=== PATIENT | female | born 1975 | race Hispanic/Latino ===

== ENCOUNTER 2017-11-18 03:30 | Inpatient (IN) | payer OTHER ==
[~2017-11-18] VITALS: Ht 154.9 cm; Wt 89.4 kg
[~2017-11-18 03:30] MED LIST: ADVAIR DISKUS 21 DSK INH; CIPRO500 M1 PO; FLUTICASON0.05 MG/A2; IBUPROFEN600 MG PO; IBUPROFEN800 M1 PO; MONTELUKAST SOD10 MG PO; NAPROXEN250 MG; PATADAY 2.5 ML2.5 ML OPH; PROAIR HFA0.09 MG/Ac INH; REGLAN10 M1 PO; TRILIPIX 135 M135 MG PO
--- NOTE | 2017-11-18 03:39 | ED GENERAL ADULT ---
History of Present Illness General Chief Complaint: Allergy Symptoms Stated Complaint: PT DISCHARGED TH C/O ? MED REACTION Source: patient Exam Limitations: no limitations Vital Signs & Intake/Output Vital Signs & Intake/Output Vital Signs Date Time Temp Pulse Resp B/P B/P Pulse O2 O2 Flow FiO2 Mean Ox Delivery Rate 11/18 0504 100.4 11/18 0504 100.4 11/18 0436 103.2 11/18 0346 103.2 106 20 138/88 96 Room Air Allergies Coded Allergies: ampicillin (Intermediate, RASH 11/17/17) Reconcile Medications Albuterol Sulfate (Proair Hfa) 0.09 MG/Actuation DEEDEE 2 PUFF INH PRN ASTHMA ( Reported) Ciprofloxacin HCl (Cipro) 500 MG TABLET 1 TAB PO BID PYELO Fenofibric Acid (Trilipix 135 MG CAP) 135 MG CAPSULE.DR 1 CAP PO DAILY CHOLESTEROL (Reported) Fluticasone Propionate (Unknown Strength) SPRAY.SUSP (Unknown Dose) UNKNOWN ( Reported) FLUTICASONE/SALMETEROL (Advair 250-50 Diskus) 250 MCG-50 MCG/DOSE BLST.W.DEV 1 PUFF INH DAILY PRN ASTHMA (Reported) Ibuprofen 800 MG TABLET 1 TAB PO TID PRN PAIN Ibuprofen 600 MG TABLET 1 TAB PO TID PRN ABDOMINAL CRAMPING Metoclopramide HCl (Reglan) 10 MG TABLET 1 TAB PO 4 TIMES/DAY PRN NAUSEA 30 minutes before meals and bedtime Montelukast Sodium 10 MG TABLET 1 TAB PO DAILY ASTHMA (Reported) Naproxen (Unknown Strength) TABLET (Unknown Dose) UNKNOWN (Reported) OLOPATADINE HCL (Pataday 2.5 Ml) (Unknown Strength) DROPS (Unknown Dose) OPH UNKNOWN (Reported) Triage Nurses Notes Reviewed? yes Onset: Gradual Duration: hour(s): Timing: recent history Injury Environment: home Severity: mild, moderate Modifying Factors: Improves With: rest. Associated Symptoms: vomiting, right cva tenderness HPI: 42 yo woman discharged 6 hours ago with pyelo returns to the ED with 4 episodes of vomiting, right flank pain, and fever/ chills. She shares that soon after arriving, she began vomiting, and has had difficulty holding down fluids. She notes right flank pain. No dyspnea, cough, phlegm. She is otherwise well. Past History Travel History Traveled to [place] past 21 day No Medical History Any Pertinent Medical History? see below for history Neurological: migraine EENT: NONE Cardiovascular: hyperlipidemia Respiratory: asthma Gastrointestinal: GERD Hepatic: ENLARGED LIVER Renal: NONE Musculoskeletal: NONE Psychiatric: NONE Endocrine: NONE Blood Disorders: NONE Cancer(s): NONE, adrenal cancer CAMP ASSISTANT/Reproductive: NONE Surgical History Surgical History: TUBAL LIGATION. Psychosocial History What is your primary language Lithuanian Family History Hx Contributory? No Review of Systems Review of Systems Constitutional: Reports: no symptoms. EENTM: Reports: no symptoms. Respiratory: Reports: no symptoms. Cardiovascular: Reports: no symptoms. GI: Reports: no symptoms. Genitourinary: Reports: no symptoms. Musculoskeletal: Reports: no symptoms. Skin: Reports: no symptoms. Neurological/Psychological: Reports: no symptoms. Hematologic/Endocrine: Reports: no symptoms. Immunologic/Allergic: Reports: no symptoms. All Other Systems: Reviewed and Negative Physical Exam Physical Exam General Appearance: well developed/nourished, mild distress, moderate distress Head: atraumatic, normal appearance Eyes: Bilateral: normal appearance. Ears, Nose, Throat: dry mucosa Neck: normal inspection, supple, full range of motion Respiratory: normal breath sounds, chest non-tender, no respiratory distress, quiet respiration, lungs clear Cardiovascular: regular rate/rhythm Gastrointestinal: normal bowel sounds, soft, non-tender, no organomegaly Back: CVA tenderness (R) Extremities: normal inspection, normal capillary refill, normal range of motion, no edema Neurologic/Psych: no motor/sensory deficits, awake, alert, oriented x 3 Skin: intact, normal color, warm/dry Core Measures ACS in differential dx? No CVA/TIA Diagnosis: No Sepsis Present: No Sepsis Focused Exam Completed? No ED Sepsis Exam Date of Focused Sepsis Exam: 11/18/17 Time of Focused Sepsis Exam: 423 Sepsis Cardiac Exam: Tachycardia Sepsis Resp Exam: CTA Sepsis Cap Refill Exam: <2 Sec Sepsis Peripheral Pulse Exam: Normal Sepsis Peripheral Pulse Location: Dorsalis Pedis Sepsis Skin Color Exam: Normal for Ethnicity Skin Temp/Moisture Exam: Warm/Dry Progress Differential Diagnoses I considered the following diagnoses in my evaluation of the patient: pyelo, sepsis, vs other... extensive workup completed a few hours ago... Plan of Care: Orders Procedure Date/time Status Clear Liquid Diet 11/18 B Active Saline Lock 11/18 526 Active Misc Message 11/18 526 Active ED Holding Orders 11/18 526 Active Admit to inpatient 11/18 526 Active Vital Signs 11/18 526 Active Code Status 11/18 526 Active BLOOD CULTURE 11/19 419 Active CULTURE,URINE 11/18 414 Active BLOOD CULTURE 11/18 414 Active URINALYSIS 11/18 414 Complete TROPONIN LEVEL 11/18 413 Complete LIPASE 11/18 413 Complete LACTIC ACID 11/18 413 Complete HEPATIC FUNCTION PANEL 11/18 413 Complete D-DIMER 11/18 413 Complete CBC WITHOUT DIFFERENTIAL 11/18 413 Complete BASIC METABOLIC PANEL 11/18 413 Complete AMYLASE 11/18 413 Complete EKG 11/18 413 Active Laboratory Tests 11/18/17435: Urine Color YEL, Urine Clarity HAZY H, Urine pH 6.0, Ur Specific [place] 1.025, Urine Protein TRACE H, Urine Ketones NEG, Urine Nitrite NEG, Urine Bilirubin NEG, Urine Urobilinogen 0.2, Ur Leukocyte Esterase SMALL H, Ur Microscopic SEDIMENT EXAMINED, Urine RBC >75 H, Urine WBC 10-15 H, Ur Epithelial Cells FEW , Urine Bacteria MOD H, Urine Hemoglobin LARGE H, Urine Glucose NEG 11/18/17409: Anion Gap 9, Estimated GFR > 60, BUN/Creatinine Ratio 21.7, Glucose 101 H, Lactic Acid 1.6, Calcium 8.8, Total Bilirubin 0.7, Direct Bilirubin 0.3, AST 21, ALT 33, Alkaline Phosphatase 93, Troponin I < 0.01, Total Protein 6.6, Albumin 3.7, Amylase 34, Lipase 36, D-Dimer High Sensitivty 277 H, CBC w Diff NO MAN DIFF REQ, RBC 3.75 L, MCV 84.5, MCH 29.2, MCHC 34.6, RDW 12.9, MPV 9.0, Gran % 81.6 H, Lymphocytes % 13.4 L, Monocytes % 4.3, Eosinophils % 0.5, Basophils % 0.2, Absolute Granulocytes 6.8 H, Absolute Lymphocytes 1.1 L, Absolute Monocytes 0.4, Absolute Eosinophils 0, Absolute Basophils 0 Microbiology 11/18 442 BLOOD: Blood Culture - RECD 11/19 435 URINE ROUT: Urine Culture - RECD 11/18 409 BLOOD: Blood Culture - RECD Diagnostic Imaging: Viewed by Me: CT Scan. Discussed w/RAD: CT Scan. Radiology Impression: PATIENT: NITHIN WEST PRESENT AGE: 42 PATIENT ACCOUNT NO: [id number] : 75 LOCATION: [facility] ORDERING PHYSICIAN: Chuy BOWDEN SERVICE DATE: 11/17/17 EXAM TYPE: CAT - CT ABD & PELVIS W IV CONTRAST; CTA CHEST-PULMONARY EMBOLISM EXAMINATION: 1. CTA chest: 2. CT ABDOMEN AND PELVIS WITH CONTRAST CLINICAL INFORMATION: Chest pain. Chest breath. Cough. Diffuse abdominal pain. Nausea. Vomiting. Fever. Concern for pyelonephritis. COMPARISON: None. TECHNIQUE: A noncontrast localizer was performed, followed by the administration of 95 mL Optiray [address] of the chest was then performed. Coronal and sagittal reformatted and 3-D technique MIP images of the chest were completed at the CT scanner and reviewed on the PACS workstation. No adverse effects were reported. Images were then performed through the abdomen and pelvis. Coronal and sagittal reformatted images performed at CT scanner by technologist. DLP: 1234.42 mGy-cm. FINDINGS: 1. CTA CHEST; VASCULAR: The main pulmonary artery, secondary and tertiary branches of the pulmonary artery are normally opacified with no evidence of pulmonary embolism. The aorta and great vessels are unremarkable. MEDIASTINUM: No mediastinal mass. No significant lymphadenopathy. There is no pericardial effusion. LUNGS: The lungs are clear. No nodule or infiltrate. Central bronchial airways open. FLUID: There is no pericardial effusion. There is no pleural effusion. AXILLA: No significant lymphadenopathy. 2. CT SCAN ABDOMEN PELVIS: LIVER, GALLBLADDER, AND BILIARY TREE: There is low attenuation of liver parenchyma due to fatty change. There is no focal liver lesion. There is no intrapelvic bile duct dilatation. The liver is enlarged. The right lobe of liver measures 24 cm superior inferior. The gallbladder is unremarkable with no evidence of radiopaque gallstones, gallbladder wall thickening, or obvious pericholecystic inflammatory changes. PANCREAS: Unremarkable. SPLEEN: Unremarkable. ADRENAL GLANDS: Unremarkable. KIDNEYS AND URETERS: The kidneys are normal in size, shape, and attenuation. No hydronephrosis, hydroureter, or calculi seen. No perinephric stranding. BLADDER: Unremarkable. GASTROINTESTINAL TRACT: The small and large bowel are unremarkable. The appendix is unremarkable. ABDOMINAL WALL: No significant hernia is appreciated. LYMPH NODES: Normal. VASCULAR: Unremarkable. PELVIC VISCERA: Uterus is retroverted. There is no adnexal abnormality. No fluid in the cul-de-sac. OSSEOUS STRUCTURES: There is bone spurring and joint narrowing of the symphysis pubis which is a chronic change. No acute osseous abnormality. IMPRESSION: 1. No acute change of chest. No evidence of pulmonary embolism. 2. No acute abnormality of the abdomen or the pelvis. Fatty change of liver. Hepatomegaly. DICTATED BY: Manuel Shelton MD DATE/ TIME DICTATED:11/17/172018 REPAIR SERVICE DISPATCHER:NOREEN DATE/TIME TRANSCRIBED: 11/17/172018 CONFIDENTIAL, DO NOT COPY WITHOUT APPROPRIATE AUTHORIZATION. < Electronically signed in Other Vendor System> SIGNED BY: Manuel Shelton MD 2028 Initial ED EKG: sinus tach, no significant change from prior Departure Departure Disposition: STILL A PATIENT Condition: Stable Clinical Impression Primary Impression: Pyelonephritis Secondary Impressions: Sepsis Referrals: Ellie Moore APRN (PCP/Family) Departure Forms: Customer Survey General Discharge Information Admission Note Spoke With: Steven Delgado MD Documentation of Exam: Documentation of any treatments & extenuating circumstances including Concerns Regarding Discharge (functional status, medication knowledge or non-compliance, living conditions, etc.) that warrant an admission rather than observation: Pt with pyelo who meets criteria for sepsis, also was on oral abx, and then vomited x 4 after being discharged earlier this evening. This represents a failure of outpatient abx, and she also meets criteria for sepsis... pt merits iv abx, iv fluids, close serial exams. Critical Care Note Critical Care Note Critical Care Time: 30-74 min ED Attending Observation Initial Observation Note: I have seen and personally examined NITHIN WEST on 11/18/17 at 0425. I agree with the current emergency department documentation. The disposition (admission or discharge) is uncertain at this time, she needs a period of observation for the following reason(s): The ED Nurse caring for this patient has been personally informed as to what the patient is being observed for.
[2017-11-18 04:33] LABS: ABSOLUTE BASOPHIL COUNT 0 /CUMM (0.0-0.2); ABSOLUTE EOSINOPHIL COUNT 0 /CUMM (0.0-0.7); ABSOLUTE GRANULOCYTE CT 6.8 /CUMM (1.4-6.5); ABSOLUTE LYMPH COUNT 1.1 /CUMM (1.2-3.4); ABSOLUTE MONOCYTE COUNT 0.4 /CUMM (0.10-0.60); BASOPHIL % 0.2 % (0.0-2.0); EOSINOPHIL % 0.5 % (0-5); GRANULOCYTE % 81.6 % (42.2-75.2); HEMATOCRIT 31.6 % (37-47); MEAN CORPUSCULAR HGB 29.2 PG (27.0-31.0); MEAN CORPUSCULAR HGB CONC 34.6 G/DL (33.0-37.0); MEAN CORPUSCULAR VOLUME 84.5 FL (81.0-99.0); PLATELET COUNT 215 /CUMM (130-400); RBC DISTRIBUTION WIDTH 12.9 % (11.5-14.5); RED BLOOD CELL CT 3.75 /CUMM (4.20-5.40); WHITE BLOOD CELL COUNT 8.4 /CUMM (4.8-10.8)
--- NOTE | 2017-11-18 05:42 | History & Physical ---
Noelle Owusu 11/18/17 0541: General Information and HPI MD Statement: I have seen and personally examined NITHIN WEST and documented this H&P. The patient is a 42 year old F who presented with a patient stated chief complaint of [back pain, fever, chills]. Source of Information: patient Exam Limitations: no limitations History of Present Illness: 42 YO F with a PMHx of HLD, migraine, HTN, asthma, who presented to the ED for back pain, fever, chills X 1 day. She reports that for the past 1 day she is having pinching back pain, 8/10, constant, worsening. She also complains of dysuria, frequency, urgency, feeling very 'hot', were sweating, fever, chills, nausea, 4 episodes of vomiting, arthralgias, myalgias, headaches. She was in the ED 4 days luong for similar complaints. D/C on Abx. She felt better for three days adn worsened again. Allergies/Medications Allergies: Coded Allergies: ampicillin (Intermediate, RASH 11/17/17) Past History Travel History Traveled to [place] past 21 day No Medical History Neurological: migraine EENT: NONE Cardiovascular: hyperlipidemia Respiratory: asthma Gastrointestinal: GERD Hepatic: ENLARGED LIVER Renal: NONE Musculoskeletal: NONE Psychiatric: NONE Endocrine: NONE Blood Disorders: NONE Cancer(s): NONE, adrenal cancer RESOURCE ROOM TEACHER/Reproductive: NONE Surgical History Surgical History: TUBAL LIGATION. Past Family/Social History Family History Relations & Conditions if any Relation not specified for: Diabetes mellitus in mother FHx: skin cancer FHx: stomach cancer Hypertension in mother Psychosocial History Where do you live? Home Who Do You Live With? spouse, child Services at Home: None Primary Language: Israeli Smoking Status: Never Smoked ETOH Use: denies use Illicit Drug Use: denies illicit drug use Functional Ability ADLs Independent: dressing, eating, toileting, bathing. Ambulation: independent IADLs Independent: shopping, housework, finances, food prep, telephone, transportation , medication admin. Employment History Employment Employed Review of Systems Review of Systems Constitutional: Reports: see HPI. EENTM: Reports: no symptoms. Cardiovascular: Reports: no symptoms. Respiratory: Reports: no symptoms. GI: Reports: see HPI. Genitourinary: Reports: see HPI. Musculoskeletal: Reports: no symptoms. Skin: Reports: see HPI. Neurological/Psychological: Reports: no symptoms. Hematologic/Endocrine: Reports: no symptoms. Immunologic/Allergic: Reports: no symptoms. All Other Systems: Reviewed and Negative Exam & Diagnostic Data Last 24 Hrs of Vital Signs/I&O Vital Signs Date Time Temp Pulse Resp B/P B/P Pulse O2 O2 Flow FiO2 Mean Ox Delivery Rate 11/18 0712 98.9 84 16 108/59 96 Room Air 11/18 0539 100.7 105 18 100/55 93 Room Air 11/18 0504 100.4 11/18 0504 100.4 11/18 0436 103.2 11/18 0400 93 Room Air 11/18 0346 103.2 106 20 138/88 96 Room Air Intake & Output 11/18 0800 11/18 0000 11/17 1600 Intake Total 1100 Output Total Balance 1100 Intake, IV 1100 Patient 197 lb Weight Physical Exam General Appearance Alert, Oriented X3, Cooperative, No Acute Distress Skin No Rashes, No Breakdown, No Significant Lesion Skin Temp/Moisture Exam: Cool/Dry Sepsis Skin Exam (color): Normal for Ethnicity HEENT Atraumatic, PERRLA, EOMI, Mucous Membr. moist/pink Neck Supple Cardiovascular Regular Rate, Normal S1, Normal S2, No Murmurs Lungs Clear to Auscultation, Normal Air Movement Abdomen Normal Bowel Sounds, Soft, No Hepatospenomegaly, No Masses, CVA tenderness B/L Neurological Normal Speech, Strength at 5/5 X4 Ext, Normal Tone, Sensation Intact, Cranial Nerves 3-12 NL Extremities No Clubbing, No Cyanosis, No Edema, Normal Pulses, No Tenderness/ Swelling Vascular Normal Pulses, Pulses Symmetrical Assessment/Plan Assessment: 42 YO F with a PMHx of HLD, migraine, HTN, asthma, who presented to the ED for back pain, fever, chills X 1 day VS: Tmax: 103.2, HR 106, BP 133/88, 96 % RA UA: hazy, protein trace, esterase small, RBC >75, WBC 10-15, bacteria Mod, Hb large. Problems: 1. Urosepsis - fever 103.2, pulse 106, with UA suggestive of infection 2. Acute Pyelonephritis 3. History of Hyperlipidemia A & P: -Admit to gen med floor -Start IV abx: Ceftrtiaxone 1 gm Daily -F/U bld cx -F/u Urine cx -Pain management: follow pain pathway -Monitor fever Diet: regualr DVT Px: ALS, sub cu lovenox Code: DNR?DNI As Ranked By This Provider Problem List: 1. Sepsis 2. Pyelonephritis Core Measures/Misc (12/06) Acute Coronary Syndrome ACS Diagnosis: No Congestive Heart Failure Congestive Heart Failure Diagnosis No Cerebrovascular Accident CVA/TIA Diagnosis: No VTE (View Protocol) VTE Risk Factors Age>40 No Mechanical VTE Prophylaxis d/t N/A MechProphylax Ordered No VTE Pharm Prophylaxis d/t NA PharmProphylax ordered Sepsis (View protocol) Sepsis Present: No If YES complete Sepsis Event Note If YES complete Sepsis Event Note Juaquin Arredondo MD 11/18/17 0620: Core Measures/Misc (12/06) Sepsis (View protocol) If YES complete Sepsis Event Note If YES complete Sepsis Event Note Resident Review Statement Resident Statement: examined this patient, discussed with development intern, reviewed EMR data (avail) Other Findings: 42 yo F with PMH of hyperlipidemia, migraine and asthma presented to the ED for evaluation of fevers, back pain and burning urinartion. She states that yesterday around 2.30pm while at work she started feeling severe back pain, sharp/stabbing in nature, radiating to her front, 10/10 in severity, aggravated with movement along with fevers, nausea and diffuse joint aches. She had few episodes of vomiting yesterday but is not able to state if there was any blood. Also complains of burning sensation and frequent urination. She was seen in the ER yesterday and was discharged on ciprofloxacin after her CT chest and abdomen showed no acute abnormality other than hepatomegaly with fatty liver disease. After going home, she continued to spike fevers along with nausea and vomiting. In the ER she was found to be febrile to 103.2 and tachycardic with pulse of 106. ROS: significant for headaches, fevers, chills, nausea, vomiting, abdominal and back pain. General Appearance: well developed/nourished, obese, moderate distress Head: atraumatic, normal appearance, sinus tenderness Eyes: bilateral normal appearance, PERRLA, Ears, Nose, Throat: normal hearing and speech Respiratory: normal breath sounds, chest non-tender, no respiratory distress Cardiovascular: regular rate/rhythm, normal S1, S2 with no M/R/G Gastrointestinal: soft, mild diffuse tenderness Back: CVA tenderness bilaterally Extremities: no edema Neurologic/Psych: awake, alert, oriented x 3, normal mood/affect Skin: intact, normal color, warm/diaphoretic Assessment: 1. Urosepsis - fever 103.2, pulse 106, with UA suggestive of infection 2. Acute Pyelonephritis 3. History of Hyperlipidemia Plan: * Admit patient to general medicine floor * Continue Ceftriaxone 1g daily. * Follow up blood and urine cultures * Pain control with tylenol (mild), percocet (moderate) and morphine (severe) * Please confirm patient's home medications. She states she only takes a pill for high cholesterol but does not remember the name. * Diet: Regular * DVT Prophylaxis: SC Lovenox * Code: DNR/DNI Cliff Yepez MD 11/18/172100: General Information and HPI Allergies/Medications Home Med list Ciprofloxacin HCl (Cipro) 500 MG TABLET 1 TAB PO BID PYELO Ibuprofen 800 MG TABLET 1 TAB PO TID PRN PAIN Core Measures/Misc (12/06) Sepsis (View protocol) If YES complete Sepsis Event Note If YES complete Sepsis Event Note Attending MD Review Statement Attending Statement Attending MD Statement: examined this patient, discuss w/resident/PA/WIND INSTRUMENT REPAIRER, agreed w/resident/PA/WIND INSTRUMENT REPAIRER, reviewed EMR data (avail), reviewed images, amended to note Attending Assessment/Plan: The patient is a 42 yo female with h/o HL, GERD and migraine headaches who presented in the [place] ED with c/o increased urinary frequency urgency, dysuria, back pain, fever and chills. She had been seen in the ED the day prior for the same and was diagnosed with a UTI. She was given IV Ceftriaxone and discharged on po Cipro. She returns today with worsening symptoms, including nausea and vomiting and was unable to keep po medications down. Back pain is bilateral (right flank worse than left). She has no h/o complicated UTI's or renal stones. Physical Exam: VS: T 103.2-100.4, P 106, R 20, BP 138/88, PO 96% RA HEENT: eyes- PERRLA, EOMI [place]-dry mucosa Neck: no adenopathy Chest: clear Cor: tachy, regular rhythm, nl S1, S2 w/o murm Abd: BS+, soft, minimal right sided tenderness w/o guarding or rebound, - CVAT Ext: tr edema, pulses 2+ Neuro: alert & oriented x 3, non-focal exam Skin: diminished turgor Labs/Tests-- as above Impression/Plan: #Urinary Tract Infection- with upper tract symptoms, most c/w pyelonephritis. There is no CT evidence of pyelonephritis, however the patient has back pain c/w this diagnosis. She does have fever and tachycardia with normal WBC, negative lactate, etc and thus does not meed sepsis criteria. Tachycardia is most likely secondary to volume depletion. She failed on OP therapy. Plan: Admit to general medial service. Cultures pending (blood/urine). IV Ceftriaxone 1 g q24 h. Follow symptoms/temperature. #Volume Depletion- secondary to diminished po intake, vomiting, and fever. Plan: IV hydration D5NS. #Gastritis- unclear if secondary to UTI vs medication (?Cipro). Better at the time of my exam. Plan: Hydrate as above. Zofran for nausea. Omeprazole 20 mg daily. #h/o Asthma- lungs clear at present. Uses prn inhalers if symptoms. Plan: Monitor for symptoms/wheeze. The patient takes Advair 250-50 qd and Proair Hfa MDI 2 puffs q4h prn. Singulair 10 mg daily. #h/o Hyperlipidemia- on fenofibrate as OP. Plan: Hold during period of GI upset. Upon reviewing the chart I see that resident staff has placed a DNR order for this patient. My presumption is that she did not understand the question being asked and will need to have further discussion with her via a blood bank laboratory technologist to explain the meaning.
[2017-11-18] MEDS ORDERED: CIPRO500 M1 PO (09:55)
[2017-11-18 15:35] VITALS: BP 138/74
--- NOTE | 2017-11-18 17:05 | Admission Certification ---
Admission Certification Certification Statement - As attending physician, I certify that at the time of - admission, based on clinical presentation, severity of - symptoms, need for further diagnostic testing and - therapeutic interventions, and risk of adverse outcomes - without in-hospital treatment, in my clinical assessment, - this patient requires an acute hospital stay for a minimum - of two nights or longer. I have also considered psychsocial - factors such as support system, advanced age, financial - issues, cognitive issues, and failed out-patient treatments, - past re-admission history, safety of patient, and lack of - compliance as applicable. Specific rationale supporting this admission is: The patient presents with fever 101, back pain, nausea and vomiting c/w UTI/ pyelonephritis that failed on outpatient therapy with Cipro. Needs admission for IV hydration, anti-emetic, IV antibiotic (ceftriaxone) and pain control. Blood and urine cultures.
--- NOTE | 2017-11-18 20:27 | Patient Discharge Instructions ---
Discharge Instructions General Discharge Information You were seen/treated for: UTI/Pyelonephritis Special Instructions: Please follow up with your PCP within 1-2 weeks of discharge. Please continue original antibiotics you received from [employer] [address] ( Ciprofloxacin 500mg BID). Will discharge on an additional 4 days worth (#8 quantity) Ciprofloxacin 500mg BID. Return to ED with worsening symptoms of back/abdominal pain, dysuria, fevers, chills, nausea, vomiting. Acute Coronary Syndrome Inclusion Criteria At DC or during hospital stay patient has or had the following: ACS DIAGNOSIS No Discharge Core Measures Meds if any: Prescribed or Continued at Discharge Meds if any: NOT Prescribed or Continued at Discharge Congestive Heart Failure Inclusion Criteria At DC or during hospital stay patient has or had the following: CHF DIAGNOSIS No Discharge Core Measures Meds if any: Prescribed or Continued at Discharge Meds if any: NOT Prescribed or Continued at Discharge Cerebrovascular accident Inclusion Criteria At DC or during hospital stay patient has or had the following: CVA/TIA Diagnosis No Discharge Core Measures Meds if any: Prescribed or Continued at Discharge Meds if any: NOT Prescribed or Continued at Discharge Venous thromboembolism Inclusion Criteria VTE Diagnosis No VTE Type NONE VTE Confirmed by (Test) NONE Discharge Core Measures - Per Current guidelines, there needs to be overlap - treatment for the first 5 days of Warfarin therapy. - If discharged on Warfarin prior to 5 days of - overlap therapy, the patient will need to be - assessed for post discharge needs including - *Post discharge parental anticoagulation - *Warfarin and/or parental anticoagulation education - *Follow up date to check INR post discharge At least 5 days overlap therapy as Inpatient No Meds if any: Prescribed or Continued at Discharge Note: Overlap Therapy is Warfarin and Anticoagulant Meds if any: NOT Prescribed or Continued at Discharge
[2017-11-18 21:04] VITALS: BP 98/58
[2017-11-19 07:08] VITALS: BP 90/60
--- NOTE | 2017-11-19 07:15 | PN- Housestaff ---
See Addendum Subjective Follow-up For: UTI/Pyelonephritis Subjective: Patient seen and examined at bedside. Overnight febrile at 103.2 given IV tylenol whioch resolved to 100.6 with a blood pressure of 98/58. Patient claims she continues to feel nausea but no vomiting overnight. Her back pain is bilateral and a 8/10 this morning. She is complaining of a headache which she claims advil usually helps. Patient continues to have dysuria on urination. She is unable to tolerate diet and is currently receiving IV fluids. Review of Systems Constitutional: Denies: see HPI. Objective Last 24 Hrs of Vital Signs/I&O Vital Signs Date Time Temp Pulse Resp B/P B/P Pulse O2 O2 Flow FiO2 Mean Ox Delivery Rate 11/19 0708 98.1 61 16 90/60 91 11/18 2238 98.0 11/18 2104 100.6 94 16 98/58 92 Room Air 11/18 2038 100.6 11/18 1940 103.2 11/18 1535 103.1 95 20 138/74 95 11/18 1312 Room Air 11/18 1249 100.7 11/18 1201 98.7 74 16 110/72 98 Room Air 11/18 0931 98.7 78 16 106/70 97 Room Air 11/18 0712 98.9 84 16 108/59 96 Room Air Intake & Output 11/19 0800 11/19 0000 11/18 1600 Intake Total 1100 620 910 Output Total 1050 200 Balance 50 620 710 Intake, IV 1000 500 250 Intake, Oral 100 120 660 Number 0 Bowel Movements Output, Urine 1050 200 Patient 197 lb Weight Weight Reported by Patient Measurement Method Physical Exam General Appearance: Alert, Oriented X3, Cooperative, Mild Distress Skin: No Rashes, No Breakdown Cardiovascular: Regular Rate, Normal S1, Normal S2 Lungs: Clear to Auscultation, Normal Air Movement Abdomen: Distended; tenderness to superficial palpation; normal bowel sounds Extremities: No Clubbing, No Cyanosis, trace pedal edema Vascular: Normal Pulses, Pulses Symmetrical Other Physical Findings: +CVA Tenderness bilaterally Current Medications: Current Medications Sig/Anne Start time Last Medication Dose Route Stop Time Status Admin Acetaminophen 1,000 MG Q6P PRN 11/18 1944 AC 11/18 N/A 1 UNIT IV 1939 Acetaminophen 0 .STK-MED ONE 08/30 1937 DC IV Acetaminophen 0 .STK-MED ONE 11/18 1249 DC PO Acetaminophen 650 MG Q6P PRN 11/18 0545 AC 11/18 PO 1249 Ceftriaxone Sodium 1,000 MG DAILY 11/19 899 AC IV Dextrose/Sodium 1,000 ML Q8H 11/18 0845 AC 11/19 Chloride IV 0213 Enoxaparin Sodium 0 .STK-MED ONE 11/18 0928 DC SC Enoxaparin Sodium 40 MG DAILY 11/18 899 AC 11/18 SC 0930 Morphine Sulfate 0 .STK-MED ONE 11/18 1248 DC .ROUTE Morphine Sulfate 2 MG Q4P PRN 11/18 0545 AC 11/19 IV 0613 Ondansetron HCl 4 MG Q6P PRN 11/18 899 AC 11/18 IV 1240 Oxycodone HCl 5 MG Q6H PRN 11/18 0545 AC PO Phenazopyridine HCl 100 MG ONCE ONE 11/18 184 DC 11/18 PO 11/18 1845 192 Assessment/Plan Assessment: The patient is a 42 yo female with h/o HL, GERD and migraine headaches who presented in the [place] ED with c/o increased urinary frequency urgency, dysuria, back pain, fever and chills. She had been seen in the ED the day prior for the same and was diagnosed with a UTI. She was given IV Ceftriaxone and discharged on po Cipro. She returns today with worsening symptoms, including nausea and vomiting and was unable to keep po medications down. Back pain is bilateral (right flank worse than left). She has no h/o complicated UTI's or renal stones. 11/19: Febrile overnight 103.2 given IV tylenol temperature to 100.6 with blood pressure 98/58. Patient on D5 Normal Saline @ 125/hr. Blood cultures and urine cultures pending. Patient given one dose antibiotics yesterday of IV rocephin. Patient continues to have nausea unable to properly tolerate PO. She claims she has dysuria which is improving with Pyridium. Patient advised this may cuase her bodily fluids to turn reddish/orange. Spoke with patients family member and patient with the help of belgian speaking international banker Dr. Corona for confirmation on code status which is now changed to FULL CODE. PROBLEM LIST: 1. UTI/Acute Pyelonephritis UTI/Pyelonephritis * Continue to monitor for fevers, leukocytosis * Continue IV Antibiotics Rocephin Day 2 given urine cultures positive for E. Coli with urinary symptoms of dysuria * IV Fluid hydration D5 NS @ 125 * Follow up blood cultures/urine cultures accordingly * Urine cultures from positive for E. Coli with sensitivities back; will determine oral antibitoics on discharge accordingly Code Status: FULL CODE DVT PPx: lovenox Diet: Regular Problem List: 1. Pyelonephritis 2. Sepsis Pain Ratin Pain Location: bilateral back pain Pain Goal: Pain 4 or less Pain Plan: as per pain pathway Tomorrow's Labs & Rationales: cbc bep cbc bep
[2017-11-19 08:22] VITALS: BP 122/74
[2017-11-19 09:42] LABS: ABSOLUTE BASOPHIL COUNT 0 /CUMM (0.0-0.2); ABSOLUTE EOSINOPHIL COUNT 0.1 /CUMM (0.0-0.7); ABSOLUTE GRANULOCYTE CT 5.8 /CUMM (1.4-6.5); ABSOLUTE LYMPH COUNT 1.8 /CUMM (1.2-3.4); ABSOLUTE MONOCYTE COUNT 0.7 /CUMM (0.10-0.60); BASOPHIL % 0.3 % (0.0-2.0); EOSINOPHIL % 0.8 % (0-5); GRANULOCYTE % 68.9 % (42.2-75.2); HEMATOCRIT 27.9 % (37-47); MEAN CORPUSCULAR HGB 29.1 PG (27.0-31.0); MEAN CORPUSCULAR HGB CONC 33.8 G/DL (33.0-37.0); MEAN CORPUSCULAR VOLUME 86.2 FL (81.0-99.0); PLATELET COUNT 205 /CUMM (130-400); RBC DISTRIBUTION WIDTH 13.2 % (11.5-14.5); RED BLOOD CELL CT 3.24 /CUMM (4.20-5.40); WHITE BLOOD CELL COUNT 8.4 /CUMM (4.8-10.8)
--- NOTE | 2017-11-19 15:13 | Discharge Summary ---
Visit Information Visit Dates Admission Date: 11/18/17 Discharge Date: 11/20/17 Hospital Course Course Attending Physician: Cliff Yepez MD Primary Care Physician: [facility] Course: HOSPITAL COURSE: 42 year old female with PMH of hyperlipidemia, migraine and asthma presented to the ED for evaluation of fevers, back pain and burning on urination. She states that the day prior to admission 11/17/17, while at work she started feeling severe back pain, sharp/stabbing in nature, radiating to her front, 10/10 in severity, aggravated with movement along with fevers, nausea and diffuse joint aches. She had few episodes of vomiting yesterday but is not able to state if there was any blood. Also complains of burning sensation and frequent urination. She was seen in the ER night before admission (11/17/17) and was discharged on ciprofloxacin after her CT chest and abdomen showed no acute abnormality other than hepatomegaly with fatty liver disease. After going home, she continued to spike fevers along with nausea and vomiting. 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 EMERGENCY DEPARTMENT: VS: T 103.2-100.4, P 106, R 20, BP 138/88, PO 96% RA UA: hazy, protein trace, esterase small, RBC >75, WBC 10-15, bacteria Mod, Hb large. CT ABDOMEN 1. No acute change of chest. No evidence of pulmonary embolism. 2. No acute abnormality of the abdomen or the pelvis. Fatty change of liver. Hepatomegaly. GENERAL MEDICINE ADMISSION: Patient admitted to general medicine floor for evaluation and treatment of the following. PROBLEM LIST: 1. Acute Pyelonephritis ACUTE PYELONEPHRITIS Patient admitted to general medicine floor given elevated temparture of 103.2 and tachycardic with a pulse of 106. Patient seen in ER the day prior and discharged on ciprofloxacin after her CT chest and abdomen showed no acute abnormality other than hepatomgely with fatty liver disease. Patient returned after continuous vomiting, nausea, fevers and chills at home to ED on 11/18/17. Cultures were taken at initial visit and grew positive for E. Coli that was mcdonnell- sensitive. Patient started on IV Ceftriaxone 1 gram daily during the course of her stay. Hydrated with Dextrose Normal Saline. Regular diet as patient tolerated. Pyridium for urinary symptoms. Blood and urine cultures followed. Tylenol, oxycodone and iv morphine for pain control added tramadol given her nausea to morphine. Patient advised to follow up with her PCP upon discharge. Patient advised to continue oral antibiotics accordingly as she received 7 days worth at initial ED visit. Discharged on 4 extra days of Ciprofloxacin 500mg BID to complete a total of 2 weeks of treatment (received 3 doses IV rocephin inpatient). Told to return to ED with worsening fevers, chills, nausea, vomiting and urinary symptoms. Code Status: FULL CODE DVT PPx: Heparin SC Diet: Regular Allergies: Coded Allergies: ampicillin (Intermediate, RASH 11/17/17) Disposition Summary Disposition Principal Diagnosis: Urinary Tract Infection Additional Diagnosis: Pyelonephritis Discharge Disposition: home or self care Discharge Instructions General Discharge Information Code Status: Full Code Patient's Diet: Regular Patient's Activity: As tolerated Follow-Up Instructions/Appts: Please follow up with your primary care physician within 1-2 weeks of discharge. Please continue antibiotic course as precribed Medications at Discharge Discharge Medications: Stop taking the following medications: Ibuprofen (Ibuprofen) 800 MG TABLET ORAL THREE TIMES DAILY as needed for PAIN Qty = 30 The following medications have been changed: Old: Ciprofloxacin HCl (Cipro) 500 MG TABLET 1 Tablet ORAL TWICE DAILY Qty = 8 New: Ciprofloxacin HCl (Cipro) 500 MG TABLET 1 Tablet ORAL TWICE DAILY Qty = 8 Instructions: .. Copies To: Ellie Moore APRN Attending Review Statement Documenting Attending: Cliff Yepez MD Other Findings: Agree with the above summary of care and plan of care upon discharge.
[2017-11-19 15:38] VITALS: BP 116/80
[2017-11-19 20:05] VITALS: BP 126/78
[2017-11-20 06:55] VITALS: BP 110/70
--- NOTE | 2017-11-20 08:01 | PN- Housestaff ---
See Addendum Subjective Follow-up For: Acute Pyelonephritis Subjective: Patient seen and examined at bedside. She is afebrile with normal vital signs overnight. Continuing IV Rocephin and will discharge on propr PO medications accordingly. She has bilateral upper hand and lower extremity swelling that is likely contributed to the fluid. She continues to have bilateral back pain and nausea that is however improved. She is tolerating very little PO at this time. Patient would like to leave home today. Back pain 08/29. Review of Systems Constitutional: Denies: see HPI. Objective Last 24 Hrs of Vital Signs/I&O Vital Signs Date Time Temp Pulse Resp B/P B/P Pulse O2 O2 Flow FiO2 Mean Ox Delivery Rate 11/20 654 99.0 84 20 110/70 96 Room Air 11/19 2004 98.2 72 20 126/78 96 11/19 1538 97.7 67 20 116/80 98 Intake & Output 11/20 1600 11/20 0800 11/20 0000 Intake Total 1120 1120 Output Total 400 Balance 1120 720 Intake, IV 1000 1000 Intake, Oral 120 120 Output, Urine 400 Physical Exam General Appearance: Alert, Oriented X3, Mild Distress Skin: No Rashes, No Breakdown HEENT: EOMI, Mucous Membr. moist/pink Cardiovascular: Regular Rate, Normal S1, Normal S2 Lungs: Clear to Auscultation, Normal Air Movement Abdomen: Tender to palpation, decreased bowel sounds, no masses, no rebound Vascular: Normal Pulses, Pulses Symmetrical Current Medications: Current Medications Sig/Anne Start time Last Medication Dose Route Stop Time Status Admin Acetaminophen 0 .STK-MED ONE 11/20 546 DC IV Acetaminophen 1,000 MG Q6P PRN 11/18 194 AC 11/20 N/A 1 UNIT IV 0546 Acetaminophen 650 MG Q6P PRN 11/18 0545 AC 11/18 PO 1249 Calcium Carbonate 500 MG DAILY 11/20 899 AC 11/20 PO 0850 Calcium Carbonate 0 .STK-MED ONE 11/19 2200 DC PO Ceftriaxone Sodium 1,000 MG DAILY 11/19 899 AC 11/20 IV 0851 Dextrose/Sodium 1,000 ML Q8H 11/19 899 AC 11/20 Chloride IV 0911 Docusate Sodium 100 MG BID 11/19 899 AC 11/20 PO 0851 Enoxaparin Sodium 40 MG DAILY 11/18 899 AC 11/20 SC 0850 Morphine Sulfate 2 MG Q4P PRN 11/18 0545 AC 11/19 IV 1929 Ondansetron HCl 4 MG Q6P PRN 11/18 0900 AC 11/20 IV 0910 Oxycodone HCl 5 MG Q6H PRN 11/18 0545 AC 11/20 PO 0919 Patient Medication 1 ED ONE ONE 11/19 1315 [place] Teaching ED 11/19 1316 Phenazopyridine HCl 100 MG DAILY PRN 11/19 0830 AC PO Polyethylene Glycol 17 GM DAILY 11/19 0915 AC 11/20 PO 0852 Senna 187 MG AT BEDTIME 11/19 2100 AC 11/19 PO 1929 Tramadol HCl 50 MG Q6 11/20 1200 AC PO Last 24 Hrs of Lab/Robert Results Last 24 Hrs of Labs/Mics: Laboratory Tests 11/20/17 0735: Anion Gap 6, Estimated GFR > 60, BUN/Creatinine Ratio 6.7 L, CBC w Diff NO MAN DIFF REQ, RBC 3.14 L, MCV 86.2, MCH 29.0, MCHC 33.7, RDW 13.3, MPV 9.5, Gran % 69.0, Lymphocytes % 23.3, Monocytes % 6.6, Eosinophils % 0.9, Basophils % 0.2, Absolute Granulocytes 4.6, Absolute Lymphocytes 1.5, Absolute Monocytes 0.4, Absolute Eosinophils 0.1, Absolute Basophils 0 Assessment/Plan Assessment: The patient is a 42 yo female with h/o HL, GERD and migraine headaches who presented in the [facility] ED with c/o increased urinary frequency urgency, dysuria, back pain, fever and chills. She had been seen in the ED the day prior for the same and was diagnosed with a UTI. She was given IV Ceftriaxone and discharged on po Cipro. She returns today with worsening symptoms, including nausea and vomiting and was unable to keep po medications down. Back pain is bilateral (right flank worse than left). She has no h/o complicated UTI's or renal stones. 11/20: Patient afebrile overnight with stable vital signs. Continuing IV Rocephin Day 3. Patient complaining of hand and foot swelling likely due to IV fluids. Possible discharge today if able to tolerate PO. Stopping IV morphine given nausea; will continue Tramadol. Patient discharged recently on 7 days (#14 quantitiy) of Ciprofloxacin on recent ER visit. We will discharge her on 4 more days of Ciprofolaxicin to complete a 14 day course of antibiotics. Patient received 3 doses during her stay at [facility]. PROBLEM LIST: 1. UTI/Acute Pyelonephritis UTI/Pyelonephritis * Continue to monitor for fevers, leukocytosis * Continue IV Antibiotics Rocephin Day 3 given urine cultures positive for E. Coli with urinary symptoms of dysuria * IV Fluid hydration D5 NS @ 125 * Follow up blood cultures/urine cultures accordingly * Urine cultures from positive for E. Coli with sensitivities back; Discharge on Ciproflaxicin 500mg BID to complete a 14 day course (received 3 days here) - prescribed recently 7 day course on initial ER visit where she was discharged * D/C morphine; Tramadol orally with oxycodone given nausea Code Status: FULL CODE DVT PPx: lovenox Diet: Regular Problem List: 1. Pyelonephritis Pain Ratin Pain Location: back pain Pain Goal: Pain 4 or less Pain Plan: as per pain pathway Tomorrow's Labs & Rationales: cbc bep
[2017-11-20 08:55] LABS: ABSOLUTE BASOPHIL COUNT 0 /CUMM (0.0-0.2); ABSOLUTE EOSINOPHIL COUNT 0.1 /CUMM (0.0-0.7); ABSOLUTE GRANULOCYTE CT 4.6 /CUMM (1.4-6.5); ABSOLUTE LYMPH COUNT 1.5 /CUMM (1.2-3.4); ABSOLUTE MONOCYTE COUNT 0.4 /CUMM (0.10-0.60); BASOPHIL % 0.2 % (0.0-2.0); EOSINOPHIL % 0.9 % (0-5); HEMATOCRIT 27.1 % (37-47); MEAN CORPUSCULAR HGB CONC 33.7 G/DL (33.0-37.0); MEAN CORPUSCULAR VOLUME 86.2 FL (81.0-99.0); MEAN PLATELET VOLUME 9.5 FL (7.4-10.4); PLATELET COUNT 239 /CUMM (130-400); RBC DISTRIBUTION WIDTH 13.3 % (11.5-14.5); RED BLOOD CELL CT 3.14 /CUMM (4.20-5.40); WHITE BLOOD CELL COUNT 6.7 /CUMM (4.8-10.8)
[2017-11-20] MEDS ORDERED: CIPRO500 M1 PO ×3 (11:58→13:01)
[2017-11-21] MEDS ORDERED: CIPRO500 M1 PO (08:37)
== END 2017-11-20 13:56 | DRG 463 ==
LOC: ERH 03:30 → 2NA 05:27 → ERHI 05:27 → ENRESERV 11:58 → ENTRNSPT 12:52 → EDTRNSPTSTS 12:54 → EDTRNSPT 12:54 → 2NA 13:05 → CMPTRNSPT 13:14 → ENTRNSPT 11-20 13:37 → EDTRNSPTSTS 11-20 13:48 → EDTRNSPT 11-20 13:48 → 2NA 11-20 13:56 → CMPTRNSPT 11-20 14:15
PROVIDERS: Pediatrics; Physical Medicine & Rehabilitation Pain Medicine
DX: N10 Acute pyelonephritis (principal); E78.5 Hyperlipidemia, unspecified; J45.909 Unspecified asthma, uncomplicated; K21.9 Gastro-esophageal reflux disease without esophagitis; Z85.89 Personal history of malignant neoplasm of other organs and systems; Z66 Do not resuscitate; Z88.1 Allergy status to other antibiotic agents
CPT/HCPCS: 2NAP; 36592; 71046; 81001; 82436; 87040; 87086; 93005; 93010; 96374; 96375; 99291; J0131; J0696; J1650; J2405; J7042